=== PATIENT | male | born 1935 | race Caucasian/White ===

== ENCOUNTER 2019-04-16 13:45 | Day surgery (SDC) | payer MEDICARE ==
[~2019-04-16] VITALS: Ht 175.3 cm; Wt 77.0 kg
[2019-04-16] MEDS ORDERED: BUPIVACAINE/PF 0.5% ONE (14:10)
[2019-04-16] MEDS ORDERED: LACTATED RINGERS 1,000 ML IV ONE (15:03)
[2019-04-16 15:05] VITALS: BP 168/87
[2019-04-16] MEDS ORDERED: FINA5TAB4 PO (15:14)
[2019-04-16] MEDS ORDERED: [UNRECOGNIZED DRUG - CODE] PO (15:14)
[2019-04-16] MEDS ORDERED: TAMS-11 PO (15:14)
[2019-04-16] MEDS ORDERED: LOSA100T14 PO (15:14)
[2019-04-16] MEDS ORDERED: FENO145T19 PO (15:14)
[2019-04-16] MEDS ORDERED: SERT50TA28 PO (15:14)
[2019-04-16] MEDS ORDERED: ATOR40TA PO (15:14)
[2019-04-16] MEDS ORDERED: GABA300C10 PO (15:14)
[2019-04-16] MEDS ORDERED: LIDOCAINE 1%, 20ML ONE (15:30)
[2019-04-16] MEDS ORDERED: FENTANYL PF 100 MCG/2ML ONE ×2 (15:46→15:54)
[2019-04-16 15:54] LABS: ALANINE AMINOTRANSFERASE 40 U/L (12-78); ALBUMIN 4.2 g/dL (3.4-5.0); ANION GAP 6 mmol/L (5-15); CHLORIDE 108 mmol/L (98-107); CREATININE 1.44 mg/dL (0.7-1.3)
[2019-04-16] MEDS ORDERED: ONDANSETRON 2MG/ML, 2ML ONE (15:54)
[2019-04-16] MEDS ORDERED: PROPOFOL 10 MG/ML, 20ML ONE (15:54)
[2019-04-16] MEDS ORDERED: DEXAMETHASONE 4 MG/ML, 1ML ONE (15:54)
[2019-04-16 15:56] LABS: ALKALINE PHOSPHATASE 39 U/L (45-117); BILIRUBIN,TOTAL 0.5 mg/dL (0.2-1.0); TOTAL PROTEIN 7.9 g/dL (6.4-8.2)
[2019-04-16] MEDS ORDERED: ACETAMINOPHEN 325 MG TABLET PO PRN ×2 (16:00→16:30)
[2019-04-16] MEDS ORDERED: EPHEDRINE 50 MG/ML, 1ML IVPush PRN (16:30)
[2019-04-16] MEDS ORDERED: ONDANSETRON 2MG/ML, 2ML IV PRN (16:30)
[2019-04-16] MEDS ORDERED: FENTANYL PF 100 MCG/2ML IV PRN (16:30)
[2019-04-16] MEDS ORDERED: DIAZEPAM 5 MG/ML, 2ML IVPush PRN (16:30)
[2019-04-16] MEDS ORDERED: OXYcodone 5 MG/5 ML ORAL.SOL UDC PO PRN (16:30)
[2019-04-16] MEDS ORDERED: PROMETHAZINE 25 MG/ML, 1ML IV PRN (16:30)
[2019-04-16] MEDS ORDERED: ALBUTEROL SULFATE 2.5 MG/3 ML NPPB PRN (16:30)
[2019-04-16] MEDS ORDERED: LABETALOL 5MG/ML, 20ML IV PRN (16:30)
[2019-04-16] MEDS ORDERED: PROMETHAZINE 12.5 MG SUPP PR PRN (16:30)
[2019-04-16] MEDS ORDERED: hydrALAzine 20 MG/ML, 1ML IV PRN (16:30)
[2019-04-16] MEDS ORDERED: HYDROmorphone 1 MG/ML, 1ML INJ IVPush PRN (16:30)
[2019-04-16] MEDS ORDERED: MEPERIDINE/PF 25MG/ML,1ML IVPush PRN (16:30)
[2019-04-16] MEDS ORDERED: ONDANSETRON ODT 8 MG PO PRN (16:30)
[2019-04-16] MEDS ORDERED: MIDAZOLAM 1 MG/ML, 2ML IV PRN (16:30)
[2019-04-16] MEDS ORDERED: HALOPERIDOL 5 MG/ML IV PRN (16:30)
[2019-04-16] MEDS ORDERED: hydrALAzine 20 MG/ML, 1ML ONE (16:59)
== END 2019-04-16 18:25 | disposition home or self-care (01) ==
LOC: OR 13:45
PROVIDERS: ATTEND Surgery Surgery of the Hand
DX: G56.03 Carpal tunnel syndrome, bilateral upper limbs (principal); G56.21 Lesion of ulnar nerve, right upper limb; I10 Essential (primary) hypertension; M19.90 Unspecified osteoarthritis, unspecified site; G47.33 Obstructive sleep apnea (adult) (pediatric); Z87.891 Personal history of nicotine dependence
CPT/HCPCS: 36415; 64721; 80053; 93005; J0360; J1100; J2405; J2704; J3010; J7120

== ENCOUNTER → 2019-10-30 | Outpatient (CLI) | payer MEDICARE ==
[~2019-10-30] MED LIST: ACET325T14 PEG; ACET650S21 PO; ATOR40TA PO; CLARITIN PO; FENO145T19 PO; FINA5TAB4 PO; GABA300C10 PO; LOSA100T14 PO; MULT-252 PO; PRILOSEC PO-COUM; SERT50TA28 PO; TAMS-11 PO; [UNRECOGNIZED DRUG - CODE] PO; fish oil PO; occuvite PO; vitamin D3 PO
[2019-10-30 13:10] LABS: CHLORIDE 105 mmol/L (98-107)
[2019-10-30 13:15] LABS: ALANINE AMINOTRANSFERASE 31 U/L (12-78); ALBUMIN 3.8 g/dL (3.4-5.0); ALKALINE PHOSPHATASE 61 U/L (45-117); ANION GAP 9 mmol/L (5-15); BILIRUBIN,TOTAL 0.6 mg/dL (0.2-1.0); CALCIUM 9.6 mg/dL (8.5-10.1); CREATININE 1.22 mg/dL (0.7-1.3); TOTAL PROTEIN 7.6 g/dL (6.4-8.2)
== END | disposition home or self-care (01) ==
LOC: STAR 10:36
PROVIDERS: ATTEND Surgery Surgery of the Hand
DX: Z01.818 Encounter for other preprocedural examination (principal); Z20.828 Contact with and (suspected) exposure to other viral communicable diseases; G56.03 Carpal tunnel syndrome, bilateral upper limbs
CPT/HCPCS: 36415; 80053; 87635; 93005

== ENCOUNTER 2019-11-03 06:29 | Day surgery (SDC) | payer MEDICARE ==
[~2019-11-03] VITALS: Ht 177.8 cm; Wt 75.6 kg
[~2019-11-03 06:29] MED LIST changes: -CLARITIN PO; -PRILOSEC PO-COUM
[2019-11-03] MEDS ORDERED: LACTATED RINGERS 1,000 ML IV SCH (07:11)
[2019-11-03 07:12] VITALS: BP 162/83
[2019-11-03] MEDS ORDERED: CLARITIN PO (07:17)
[2019-11-03] MEDS ORDERED: PRILOSEC PO-COUM (07:17)
[2019-11-03] MEDS ORDERED: CHLORHEXIDINE 15 ML UDC MM ONE (07:30)
[2019-11-03] MEDS ORDERED: FENTANYL PF 100 MCG/2ML ONE (07:45)
[2019-11-03] MEDS ORDERED: MIDAZOLAM 1 MG/ML, 2ML ONE (07:45)
[2019-11-03] MEDS ORDERED: BUPIVACAINE/PF 0.5% ONE (08:10)
[2019-11-03] MEDS ORDERED: LIDOCAINE/PF 1%, 30ML ONE (08:11)
[2019-11-03] MEDS ORDERED: KETOROLAC 30 MG/1 ML ONE (08:25)
[2019-11-03] MEDS ORDERED: PROPOFOL 10 MG/ML, 20ML ONE (08:51)
[2019-11-03] MEDS ORDERED: ONDANSETRON 2MG/ML, 2ML ONE (08:51)
[2019-11-03] MEDS ORDERED: LABETALOL 5MG/ML, 20ML IV PRN (09:00)
[2019-11-03] MEDS ORDERED: FENTANYL PF 100 MCG/2ML IV PRN (09:00)
[2019-11-03] MEDS ORDERED: OXYcodone 5 MG/5 ML ORAL.SOL UDC PO PRN (09:00)
[2019-11-03] MEDS ORDERED: hydrALAzine 20 MG/ML, 1ML IV PRN (09:00)
[2019-11-03] MEDS ORDERED: ACETAMINOPHEN 325 MG TABLET PO PRN (09:00)
[2019-11-03] MEDS ORDERED: ALBUTEROL SULFATE 2.5 MG/3 ML NPPB PRN (09:00)
[2019-11-03] MEDS ORDERED: PROMETHAZINE 25 MG/ML, 1ML IVPush PRN (09:00)
== END 2019-11-03 10:05 | disposition home or self-care (01) ==
LOC: OUT 06:29
PROVIDERS: ATTEND Surgery Surgery of the Hand
DX: G56.02 Carpal tunnel syndrome, left upper limb (principal); M19.90 Unspecified osteoarthritis, unspecified site; K21.9 Gastro-esophageal reflux disease without esophagitis; I10 Essential (primary) hypertension; E78.5 Hyperlipidemia, unspecified; N40.0 Benign prostatic hyperplasia without lower urinary tract symptoms; J45.909 Unspecified asthma, uncomplicated; Z79.899 Other long term (current) drug therapy; Z72.89 Other problems related to lifestyle; Z98.890 Other specified postprocedural states; Z87.891 Personal history of nicotine dependence
CPT/HCPCS: 64721; J1885; J2250; J2405; J2704; J3010; J7120